=== PATIENT | male | born 1970 | race Two or more races ===

== ENCOUNTER 2023-10-13 18:33 | Emergency (ER) | payer OTHER ==
[~2023-10-13] VITALS: Ht 165.1 cm; Wt 72.6 kg
[2023-10-13] MEDS ORDERED: COZAAR50 MG PO (18:49)
[2023-10-13] MEDS ORDERED: CLINDAMYCIN PHOSPHATE 150 MG/ML (600mg) IM ONE (19:15)
[2023-10-13] MEDS ORDERED: LIDOCAINE HCL 1% 10ML VIAL IJ ONE (19:15)
[2023-10-13] MEDS ORDERED: TETANUS & DIPHTHERIA TOX,ADULT 0.5 ML VIAL IM ONE (19:15)
[2023-10-13] MEDS ORDERED: LIDOCAINE HCL 1% 10ML VIAL ONE (20:13)
[2023-10-13] MEDS ORDERED: POVIDONE-IODINE 118 ML BOTT TOP ONE (20:14)
[2023-10-13] MEDS ORDERED: TETANUS DIPHTHERIA TOX. ADSOR 5 ML VIAL IM ONE (20:51)
[2023-10-13] MEDS ORDERED: CLINDAMYCIN PHOSPHATE 150 MG/ML (900mg) ONE (20:52)
== END 2023-10-13 20:54 | disposition home or self-care (01) ==
LOC: ER 18:35
DX: S61.411A Laceration without foreign body of right hand, initial encounter (principal); W45.8XXA Other foreign body or object entering through skin, initial encounter; Y92.89 Other specified places as the place of occurrence of the external cause; Y93.89 Activity, other specified; Y99.8 Other external cause status; I10 Essential (primary) hypertension; E03.8 Other specified hypothyroidism

== ENCOUNTER 2023-10-23 19:01 | Emergency (ER) | payer OTHER ==
[~2023-10-23] VITALS: Ht 167.6 cm; Wt 8.6 kg
[~2023-10-23 19:01] MED LIST: COZAAR50 MG PO
== END 2023-10-23 21:34 | disposition home or self-care (01) ==
LOC: ER 19:02
DX: Z48.02 Encounter for removal of sutures (principal)